=== PATIENT | male | born 2005 | race Caucasian/White ===

== ENCOUNTER 2025-06-25 11:25 | Emergency (ER) | payer BC, MEDICAID ==
[~2025-06-25] VITALS: Ht 185.4 cm; Wt 88.5 kg
[2025-06-25 11:26] VITALS: BP 119/68; TEMP 98
[2025-06-25 12:19] LABS: PLATELET COUNT (AUTO) 339 K/uL (150-450); RED BLOOD CELL COUNT(AUTO) 5.02 MIL/uL (4.5-6.0); RED CELL DISTRIBUTION WIDTH 13.7 % (11.5-15.0); WHITE BLOOD COUNT (AUTO) 6.5 K/uL (4.3-11.0)
[2025-06-25] MEDS ORDERED: ALBU18HF2 INH (12:25)
[2025-06-25 12:31] VITALS: O2SAT 99
== END 2025-06-25 12:33 | disposition home or self-care (01) ==
LOC: ER 11:29
DX: J06.9 Acute upper respiratory infection, unspecified (principal); B97.89 Other viral agents as the cause of diseases classified elsewhere
CPT/HCPCS: 36415; 71045-TC; 85025-TC